=== PATIENT | female | born 1955 | race Caucasian/White ===

== ENCOUNTER 2019-03-04 14:49 | Inpatient (IN) | payer BC ==
--- NOTE | 2019-03-03 15:35 | NUR ---
Patient in room PCU 3022. I have received report from Mir DICKERSON and had the opportunity to ask questions and assume patient care.
[~2019-03-04] VITALS: Ht 170.2 cm; Wt 69.5 kg
[2019-03-04 15:27] LABS: BASOPHILS # (AUTO) 0.1 X10'3 (0-0.2); BASOPHILS % (AUTO) 0.7 % (0-1); EOSINOPHILS # (AUTO) 0.1 X10'3 (0-0.9); HEMATOCRIT 42.5 % (35.0-45.0); HEMOGLOBIN 14.3 g/dl (12.0-16.0); LYMPHOCYTES # (AUTO) 1.3 X10'3 (1.1-4.8); LYMPHOCYTES % (AUTO) 17.5 % (21-51); MEAN CORPUSCULAR HEMOGLOBIN 29.8 PG (27.0-31.0); MEAN CORPUSCULAR HGB CONC 33.7 g/dL (33.0-36.5); MEAN CORPUSCULAR VOLUME 88.3 FL (78-98); MONOCYTES # (AUTO) 0.5 X10'3 (0-0.9); MONOCYTES % (AUTO) 6.5 % (2-12); NEUTROPHILS # (AUTO) 5.4 X10'3 (1.8-7.7); NEUTROPHILS % (AUTO) 73.3 % (42-75); PLATELET COUNT 201 X10'3 (140-440); RED BLOOD COUNT 4.81 X10'6 (4.20-5.60); RED CELL DISTRIBUTION WIDTH 13.5 % (11.5-14.5); WHITE BLOOD COUNT 7.3 X10'3 (4.5-11.0)
[2019-03-04 15:39] LABS: ALANINE AMINOTRANSFERASE 29 U/L (12-78); ALBUMIN 3.8 G/DL (3.4-5.0); ALBUMIN/GLOBULIN RATIO 0.9 (1.1-1.5); ALKALINE PHOSPHATASE 99 IU/L (46-116); ANION GAP 6 (8-16); ASPARTATE AMINO TRANSFERASE 20 U/L (10-37); BILIRUBIN,TOTAL 0.6 MG/DL (0.1-1.0); BLOOD UREA NITROGEN 17 MG/DL (7-18); BUN/CREATININE RATIO 18.9 (6.6-38.0); CALCIUM 9.5 MG/DL (8.5-10.1); CHLORIDE 104 MMOL/L (99-107); GLUCOSE 94 MG/DL (70-104); POTASSIUM 3.8 MMOL/L (3.5-5.1); SODIUM 140 MMOL/L (135-145); TOTAL CARBON DIOXIDE 30.1 MMOL/L (24-32); eGFR 63 ML/MIN
[2019-03-04 15:41] LABS: PARTIAL THROMBOPLASTIN TIME 27 SECONDS (22-32)
[2019-03-04] MEDS ORDERED: iohexol 350MG/ML 100ml bottle IV ONE (16:36)
[2019-03-04] MEDS ORDERED: heparin 10,000 units/1 ML INJ IV ONE (16:50)
--- NOTE | 2019-03-04 17:07 | NUR ---
PT TO CT
[2019-03-04] MEDS: heparin 25,000 UNIT/250ml bag 250 ML IV SCH (17:57)
--- NOTE | 2019-03-04 18:04 | NUR ---
PT RESTING IN BEED DR GARCÍA CAME BY TO SEE PT,EXPLAINED THE PLAN OF CARE, AT BEDSIDE,DENIES ANY CONCERN,IV HEPARIN INFUSING PER MD ORDERS.WILL CONT TO MONITOR.
[2019-03-04] MEDS ORDERED: ondansetron/PF 4mg/2ml inj IV PRN (18:05)
[2019-03-04] MEDS ORDERED: magnesium 4gm in 100ml NS 100 ML IV PRN (18:05)
[2019-03-04] MEDS ORDERED: magnesium Cl slow-release 64mg tablet PO PRN (18:05)
[2019-03-04] MEDS ORDERED: bisacodyl 10mg suppository rectal RC PRN (18:05)
[2019-03-04] MEDS ORDERED: potassium Cl 40MEQ/NS 500ml 500 ML IV PRN (18:05)
[2019-03-04] MEDS ORDERED: magnesium hydroxide 30ml (MOM) UD suspension PO PRN (18:05)
[2019-03-04] MEDS ORDERED: potassium CL 10mEq/100ml bag 100 ML IV PRN (18:05)
[2019-03-04] MEDS ORDERED: mag hydrox/Alum hydrox/simeth 30ml oral suspension PO PRN (18:05)
[2019-03-04] MEDS ORDERED: HYDROcodone/acetaminophen 5mg/325mg tablet PO PRN (18:05)
[2019-03-04] MEDS ORDERED: morphine 2 MG/ML inj. syringe IV PRN ×2 (18:05)
[2019-03-04] MEDS ORDERED: magnesium 2GM in 50ml NS 50 ML IV PRN (18:05)
[2019-03-04] MEDS ORDERED: potassium Cl 20 mEq SR tablet PO PRN ×2 (18:05)
[2019-03-04] MEDS ORDERED: heparin 25,000 UNIT/250ml bag 250 ML IV SCH (18:07)
[2019-03-04] MEDS ORDERED: heparin 10,000 units/1 ML INJ IV PRN (18:10)
[2019-03-04 18:49] LABS: CLARITY,URINE CLEAR (Clear); GLUCOSE, URINE NEGATIVE (Neg); KETONES,URINE NEGATIVE (Neg); LEUKOCYTE ESTERASE ,URINE NEGATIVE (Neg); NITRITES, URINE NEGATIVE (Neg); OCCULT BLOOD,URINE NEGATIVE (Neg); PROTEIN,URINE NEGATIVE (Neg); UROBILINOGEN,URINE 0.2 E.U/dL (0.2-1.0)
[2019-03-04 18:58] LABS: COLOR,URINE STRAW (Yellow); UA COLLECTION TYPE CLN CATCH MIDSTREAM
[2019-03-04] MEDS: potassium cl 20mEq in 1/2 NS 1,000 ML IV SCH (20:44)
[2019-03-04 22:17] VITALS: BP 182/110
--- NOTE | 2019-03-04 22:26 | NUR ---
PAGER ID: [phone] MESSAGE: [id number] Yolanda Delacruz: BP 193/97 TUAN Velasquez Ext [id number]
[2019-03-04] MEDS ORDERED: hydrALAZINE 20mg/ml inj. IV PRN (22:30)
[2019-03-04] MEDS: docusate sod 100mg capsule PO SCH (22:43)
[2019-03-04 23:00] VITALS: BP 84/54
[2019-03-04] MEDS ORDERED: NO HOME MEDS (23:14)
--- NOTE | 2019-03-05 00:20 | NUR ---
Problems reprioritized. Patient report given, questions answered & plan of care reviewed with TUAN Hester.
--- NOTE | 2019-03-05 00:26 | NUR ---
Patient in room PCU 3012. I have received report from Ron DICKERSON and had the opportunity to ask questions and assume patient care.
[2019-03-05 03:00] VITALS: BP 127/67
[2019-03-05] MEDS: heparin 25,000 UNIT/250ml bag 250 ML IV SCH ×2 (03:07→16:44)
[2019-03-05 06:00] VITALS: BP 127/65
[2019-03-05 06:14] LABS: ALBUMIN 3.2 G/DL (3.4-5.0); ANION GAP 8 (8-16); BLOOD UREA NITROGEN 14 MG/DL (7-18); BUN/CREATININE RATIO 16.5 (6.6-38.0); CALCIUM 9.2 MG/DL (8.5-10.1); CHLORIDE 106 MMOL/L (99-107); CREATININE 0.85 MG/DL (0.40-0.90); GLUCOSE 94 MG/DL (70-104); MAGNESIUM 2.1 MG/DL (1.5-2.4); POTASSIUM 3.7 MMOL/L (3.5-5.1); SODIUM 141 MMOL/L (135-145); TOTAL CARBON DIOXIDE 26.9 MMOL/L (24-32); eGFR 68 ML/MIN
[2019-03-05 06:36] LABS: BASOPHILS % (AUTO) 0.2 % (0-1); EOSINOPHILS # (AUTO) 0.2 X10'3 (0-0.9); EOSINOPHILS % (AUTO) 2.1 % (0-6); HEMOGLOBIN 13.8 g/dl (12.0-16.0); LYMPHOCYTES # (AUTO) 1.8 X10'3 (1.1-4.8); LYMPHOCYTES % (AUTO) 24.4 % (21-51); MEAN CORPUSCULAR HEMOGLOBIN 29.6 PG (27.0-31.0); MEAN CORPUSCULAR HGB CONC 33.6 g/dL (33.0-36.5); MEAN PLATELET VOLUME 8.3 FL (7.4-10.4); MONOCYTES # (AUTO) 0.5 X10'3 (0-0.9); MONOCYTES % (AUTO) 6.8 % (2-12); NEUTROPHILS % (AUTO) 66.5 % (42-75); PLATELET COUNT 190 X10'3 (140-440); RED BLOOD COUNT 4.66 X10'6 (4.20-5.60); RED CELL DISTRIBUTION WIDTH 13.4 % (11.5-14.5); WHITE BLOOD COUNT 7.5 X10'3 (4.5-11.0)
[2019-03-05] MEDS: docusate sod 100mg capsule PO SCH ×2 (07:20→19:39)
[2019-03-05] MEDS: K and/or MAG REPLACEMENT MC SCH (07:26)
[2019-03-05] MEDS: potassium cl 20mEq in 1/2 NS 1,000 ML IV SCH (08:20)
[2019-03-05 11:11] VITALS: BP 110/58
[2019-03-05 15:00] VITALS: BP 136/77
--- NOTE | 2019-03-05 18:24 | NUR ---
Problems reprioritized. Patient report given, questions answered & plan of care reviewed with Seda DICKERSON.
[2019-03-05 19:00] VITALS: BP 143/81
[2019-03-05] MEDS: acetaminophen 325mg tablet PO PRN (19:41)
[2019-03-05 23:00] VITALS: BP 108/67
[2019-03-06] MEDS: potassium cl 20mEq in 1/2 NS 1,000 ML IV SCH ×2 (02:22→17:25)
[2019-03-06 03:00] VITALS: BP 105/54
[2019-03-06 03:45] LABS: ALBUMIN 3.1 G/DL (3.4-5.0); ANION GAP 9 (8-16); BLOOD UREA NITROGEN 18 MG/DL (7-18); BUN/CREATININE RATIO 19.4 (6.6-38.0); CALCIUM 8.7 MG/DL (8.5-10.1); CHLORIDE 107 MMOL/L (99-107); CREATININE 0.93 MG/DL (0.40-0.90); GLUCOSE 101 MG/DL (70-104); MAGNESIUM 2.1 MG/DL (1.5-2.4); SODIUM 142 MMOL/L (135-145); TOTAL CARBON DIOXIDE 25.6 MMOL/L (24-32); eGFR 61 ML/MIN
[2019-03-06 03:54] LABS: BASOPHILS % (AUTO) 0.5 % (0-1); EOSINOPHILS # (AUTO) 0.3 X10'3 (0-0.9); EOSINOPHILS % (AUTO) 4.4 % (0-6); HEMATOCRIT 40.1 % (35.0-45.0); HEMOGLOBIN 13.6 g/dl (12.0-16.0); LYMPHOCYTES # (AUTO) 1.8 X10'3 (1.1-4.8); LYMPHOCYTES % (AUTO) 28.2 % (21-51); MEAN CORPUSCULAR HEMOGLOBIN 29.9 PG (27.0-31.0); MEAN CORPUSCULAR HGB CONC 33.8 g/dL (33.0-36.5); MEAN CORPUSCULAR VOLUME 88.2 FL (78-98); MEAN PLATELET VOLUME 8.1 FL (7.4-10.4); MONOCYTES # (AUTO) 0.4 X10'3 (0-0.9); MONOCYTES % (AUTO) 6.6 % (2-12); NEUTROPHILS # (AUTO) 3.9 X10'3 (1.8-7.7); NEUTROPHILS % (AUTO) 60.3 % (42-75); PLATELET COUNT 193 X10'3 (140-440); RED BLOOD COUNT 4.55 X10'6 (4.20-5.60); RED CELL DISTRIBUTION WIDTH 13.2 % (11.5-14.5); WHITE BLOOD COUNT 6.5 X10'3 (4.5-11.0)
[2019-03-06 06:00] VITALS: BP 123/65
--- NOTE | 2019-03-06 06:29 | NUR ---
Problems reprioritized. Patient report given, questions answered & plan of care reviewed with Catherine DICKERSON.
--- NOTE | 2019-03-06 06:35 | NUR ---
Patient in room PCU 3022. I have received report from Seda DICKERSON and had the opportunity to ask questions and assume patient care.
[2019-03-06] MEDS: K and/or MAG REPLACEMENT MC SCH (08:00)
[2019-03-06] MEDS: docusate sod 100mg capsule PO SCH ×2 (08:30→19:03)
--- NOTE | 2019-03-06 09:50 | NUR ---
Call to lab regarding 0925 ordered PTT draw. Per lab it was ordered but not drawn. soil technologist is en route now to draw lab.
[2019-03-06 11:11] VITALS: BP 141/78
[2019-03-06 15:15] VITALS: BP 154/80
--- NOTE | 2019-03-06 17:35 | NUR ---
page to Dr Zarate re: [facility] Room 3023 Yolanda Delacruz pt changed her mind and prefers to be on [facility] 3734
[2019-03-06 18:18] VITALS: BP 137/72
--- NOTE | 2019-03-06 19:05 | NUR ---
Problems reprioritized. Patient report given, questions answered & plan of care reviewed with Rosalind DICKERSON.
[2019-03-06] MEDS: heparin 25,000 UNIT/250ml bag 250 ML IV SCH (19:08)
[2019-03-06 22:00] VITALS: BP 119/65
[2019-03-07 02:00] VITALS: BP 111/62
[2019-03-07] MEDS: potassium cl 20mEq in 1/2 NS 1,000 ML IV SCH ×2 (03:14→09:15)
[2019-03-07] MEDS: acetaminophen 325mg tablet PO PRN (03:51)
[2019-03-07 05:52] LABS: BASOPHILS % (AUTO) 0.4 % (0-1); EOSINOPHILS # (AUTO) 0.3 X10'3 (0-0.9); EOSINOPHILS % (AUTO) 3.8 % (0-6); HEMATOCRIT 40.6 % (35.0-45.0); HEMOGLOBIN 13.8 g/dl (12.0-16.0); LYMPHOCYTES # (AUTO) 1.5 X10'3 (1.1-4.8); LYMPHOCYTES % (AUTO) 20.3 % (21-51); MEAN CORPUSCULAR HEMOGLOBIN 30.1 PG (27.0-31.0); MEAN CORPUSCULAR HGB CONC 34.1 g/dL (33.0-36.5); MEAN CORPUSCULAR VOLUME 88.4 FL (78-98); MEAN PLATELET VOLUME 8.1 FL (7.4-10.4); MONOCYTES # (AUTO) 0.5 X10'3 (0-0.9); MONOCYTES % (AUTO) 7.3 % (2-12); NEUTROPHILS % (AUTO) 68.2 % (42-75); PLATELET COUNT 174 X10'3 (140-440); RED BLOOD COUNT 4.59 X10'6 (4.20-5.60); RED CELL DISTRIBUTION WIDTH 13.4 % (11.5-14.5); WHITE BLOOD COUNT 7.3 X10'3 (4.5-11.0)
[2019-03-07 06:00] VITALS: BP 109/55
--- NOTE | 2019-03-07 06:13 | NUR ---
Patient in room PCU 3022. I have received report from Rosalind DICKERSON and had the opportunity to ask questions and assume patient care.
[2019-03-07 06:28] LABS: ALBUMIN 3.1 G/DL (3.4-5.0); ANION GAP 10 (8-16); BLOOD UREA NITROGEN 14 MG/DL (7-18); BUN/CREATININE RATIO 16.3 (6.6-38.0); CHLORIDE 106 MMOL/L (99-107); CREATININE 0.86 MG/DL (0.40-0.90); GLUCOSE 100 MG/DL (70-104); POTASSIUM 4.1 MMOL/L (3.5-5.1); SODIUM 140 MMOL/L (135-145); TOTAL CARBON DIOXIDE 23.6 MMOL/L (24-32); eGFR 67 ML/MIN
[2019-03-07] MEDS: docusate sod 100mg capsule PO SCH ×2 (07:36→19:56)
[2019-03-07] MEDS: K and/or MAG REPLACEMENT MC SCH (08:00)
[2019-03-07 11:00] VITALS: BP 121/73
[2019-03-07 15:00] VITALS: BP 126/82
--- NOTE | 2019-03-07 17:33 | NUR ---
Heparin bolus given to patient in error. Dr. Mckeon notified.
--- NOTE | 2019-03-07 17:42 | NUR ---
Page to Dr Mckeon re: Room 3022 Yolanda Salamanca gave 2500 unit heparin bolus on wrong patient. please advise. Rate is currently at 900 units/hr Catherine Prasad awaiting call back Addendum: 03/07/19 at 1914 by Catherine Lopez RN [id number] Mckeon with orders. Hold Heparin drip x 1 hour, re-draw PTT in 1 hour. Heparin drip held. PTT re-draw ordered
[2019-03-07 18:00] VITALS: BP 157/94
--- NOTE | 2019-03-07 18:42 | NUR ---
PAGER ID: [phone] MESSAGE: re: Yolanda esquivel ptt [phone]
--- NOTE | 2019-03-07 19:08 | NUR ---
Problems reprioritized. Patient report given, questions answered & plan of care reviewed with Rosalind DICKERSON.
--- NOTE | 2019-03-07 19:10 | NUR ---
Problems reprioritized. Patient report given, questions answered & plan of care reviewed with Rosalind DICKERSON.
--- NOTE | 2019-03-07 19:30 | NUR ---
Night hospitalist contacted, rn to follow heparin protocol regarding ptt draws and dosing.
--- NOTE | 2019-03-07 21:15 | NUR ---
Per night md, restart heparing gtt according to protocol without a bolus.
[2019-03-07] MEDS: heparin 25,000 UNIT/250ml bag 250 ML IV SCH (21:17)
[2019-03-07 22:00] VITALS: BP 105/61
--- NOTE | 2019-03-08 01:05 | NUR ---
Dr. Espinosa not responding to pages. Last ptt dvt 41. Will continue same rate without a bolus due to heparin being turned off for three hours. Will recheck dvt ptt.
[2019-03-08 02:00] VITALS: BP 105/67
[2019-03-08] MEDS: heparin 25,000 UNIT/250ml bag 250 ML IV SCH (03:38)
[2019-03-08 05:39] LABS: BASOPHILS % (AUTO) 0.7 % (0-1); EOSINOPHILS # (AUTO) 0.4 X10'3 (0-0.9); EOSINOPHILS % (AUTO) 6.1 % (0-6); HEMATOCRIT 38.5 % (35.0-45.0); HEMOGLOBIN 13.5 g/dl (12.0-16.0); LYMPHOCYTES # (AUTO) 1.8 X10'3 (1.1-4.8); LYMPHOCYTES % (AUTO) 28.1 % (21-51); MEAN CORPUSCULAR HEMOGLOBIN 30.6 PG (27.0-31.0); MEAN CORPUSCULAR VOLUME 87.2 FL (78-98); MONOCYTES # (AUTO) 0.5 X10'3 (0-0.9); MONOCYTES % (AUTO) 7.9 % (2-12); NEUTROPHILS # (AUTO) 3.7 X10'3 (1.8-7.7); NEUTROPHILS % (AUTO) 57.2 % (42-75); PLATELET COUNT 194 X10'3 (140-440); RED BLOOD COUNT 4.41 X10'6 (4.20-5.60); RED CELL DISTRIBUTION WIDTH 13.5 % (11.5-14.5); WHITE BLOOD COUNT 6.5 X10'3 (4.5-11.0)
[2019-03-08 06:00] VITALS: BP 107/60
[2019-03-08 06:10] LABS: ALBUMIN 3.1 G/DL (3.4-5.0); ANION GAP 7 (8-16); BLOOD UREA NITROGEN 14 MG/DL (7-18); BUN/CREATININE RATIO 17.1 (6.6-38.0); CALCIUM 9.2 MG/DL (8.5-10.1); CHLORIDE 106 MMOL/L (99-107); CREATININE 0.82 MG/DL (0.40-0.90); GLUCOSE 102 MG/DL (70-104); MAGNESIUM 2.1 MG/DL (1.5-2.4); POTASSIUM 4.1 MMOL/L (3.5-5.1); SODIUM 139 MMOL/L (135-145); TOTAL CARBON DIOXIDE 26.4 MMOL/L (24-32); eGFR 71 ML/MIN
[2019-03-08] MEDS: K and/or MAG REPLACEMENT MC SCH (08:00)
[2019-03-08] MEDS: docusate sod 100mg capsule PO SCH (08:25)
[2019-03-08 11:00] VITALS: BP 130/77
[2019-03-08] MEDS ORDERED: APIX5TAB3 PO (11:06)
[2019-03-08 11:07] LABS: ANTITHROMBIN ACTIVITY 116 % (75-135); ANTITHROMBIN ANTIGEN 93 % (72-124); PROTEIN S, FREE 128 % (57-157); PROTEIN S, TOTAL 94 % (60-150)
--- NOTE | 2019-03-08 12:43 | NUR ---
pt discharged in stable condition, all belongings with pt. piv's dc'd canulas intact. tele dc'd. pt taken to private vehicle by pct
== END 2019-03-08 12:15 | disposition home or self-care (01) | DRG 299 ==
LOC: ER 14:50 → PCU 3S 18:02
PROVIDERS: ADMIT Internal Medicine; ATTEND Internal Medicine
PROC: B32T1ZZ Computerized Tomography (CT Scan) of Left Pulmonary Artery using Low Osmolar Contrast (ICD-10-PCS; principal; 2019-03-04)
PROC: B3201ZZ Computerized Tomography (CT Scan) of Thoracic Aorta using Low Osmolar Contrast (ICD-10-PCS; 2019-03-04)
PROC: B32S1ZZ Computerized Tomography (CT Scan) of Right Pulmonary Artery using Low Osmolar Contrast (ICD-10-PCS; 2019-03-04)
DX: I82.402 Acute embolism and thrombosis of unspecified deep veins of left lower extremity (principal); I26.99 Other pulmonary embolism without acute cor pulmonale; R03.0 Elevated blood-pressure reading, without diagnosis of hypertension; Z85.828 Personal history of other malignant neoplasm of skin; Z88.5 Allergy status to narcotic agent
CPT/HCPCS: 36415; 71045; 71275; 80048; 80053; 81003; 81479; 83735; 83880; 83891; 83894; 83898; 85025; 85240; 85300; 85301; 85303; 85305; 85306; 85610; 85730; 86146; 86147; 87070; 93005; 93306; 93971; 96374; 99291; G0378; J0360; J1644; Q9967

== ENCOUNTER 2019-05-19 08:56 | Outpatient (CLI) | payer BC ==
[~2019-05-19 08:56] MED LIST: APIX5TAB3 PO; NO HOME MEDS
== END 2019-05-19 23:59 | disposition home or self-care (01) ==
LOC: VAS 08:56
PROVIDERS: ATTEND Family Medicine
DX: I82.432 Acute embolism and thrombosis of left popliteal vein (principal); I26.99 Other pulmonary embolism without acute cor pulmonale
CPT/HCPCS: 93971